=== PATIENT | male | born 1985 | race American Indian/Alaskan Native ===

== ENCOUNTER 2018-04-04 08:57 | Emergency (ER) | payer OTHER ==
[2018-04-04 09:18] VITALS: TEMP 97.5; O2SAT 98
[2018-04-04] MEDS ORDERED: Sodium Chloride 0.9% 1,000 ML IV ONE (09:42)
[2018-04-04] MEDS ORDERED: Sodium Chloride 0.9% 1,000 ML ONE (09:51)
[2018-04-04 10:05] LABS: BASO % 0.4 % (0.0-2.0); EOS # 0.1 K/uL (0.0-0.7); EOS % 1.1 % (0.0-4.0); HEMOGLOBIN 14.1 g/dL (12.0-18.0); LYMPH # 3.1 K/uL (1.0-4.3); LYMPH % 27.5 % (20.0-40.0); MEAN CORPUSCULAR HEMOGLOBIN 27.8 pg (27.0-31.0); MEAN CORPUSCULAR HGB CONC 32.7 g/dL (33.0-37.0); MEAN PLATELET VOLUME 7.9 fL (7.2-11.7); MONO % 8.8 % (0.0-10.0); NEUT # 6.9 K/uL (1.8-7.0); NEUT % 62.2 % (50.0-75.0); NRBC % 0.1 % (0.0-2.0); RBC 5.07 Mil/uL (4.40-5.90); RED CELL DISTRIBUTION WIDTH 14.2 % (11.5-14.5); WHITE BLOOD COUNT 11.1 K/uL (4.8-10.8)
[2018-04-04 10:10] LABS: ALB/GLOB RATIO 1.3 (1.0-2.1); ALBUMIN 4.8 g/dL (3.5-5.0); ALT/SGPT 47 U/L (21-72); AST/SGOT 46 U/L (17-59); BLOOD UREA NITROGEN 22 mg/dL (9-20); CALCIUM 9.4 mg/dl (8.6-10.4); GFR NON-AFRICAN AMERICAN > 60
[2018-04-04 11:34] VITALS: BP 126/80; PULSE 73; RESP 14
--- NOTE | 2018-04-04 11:40 | RAD ---
Date of service: 04/04/2018 PROCEDURE: CHEST RADIOGRAPH, 1 VIEW HISTORY: chest pain COMPARISON: None available. FINDINGS: LUNGS: Clear. PLEURA: No pneumothorax or pleural fluid seen. CARDIOVASCULAR: No aortic atherosclerotic calcification present. Normal. OSSEOUS STRUCTURES: No significant abnormalities. VISUALIZED UPPER ABDOMEN: Normal. OTHER FINDINGS: None. IMPRESSION: No active disease.
--- NOTE | 2018-04-04 13:03 | C.PDOC ---
History Of Present Illness 32 year old male presents to the ED for evaluation of dizziness that started last night. The patient reports feeling mildly dizzy after getting upset last night, reason unknown. Pt does not want to go into further detail. Denies fever, chills, cough, and any other associated symptoms. Chief Complaint (Nursing): Chest Pain History Per: Patient History/Exam Limitations: no limitations Onset/Duration Of Symptoms: Hrs Current Symptoms Are (Timing): Still Present Recent travel outside of the [place]: No Past Medical History Reviewed: Historical Data, Nursing Documentation, Vital Signs Vital Signs: Last Vital Signs Temp 97.5 F L 04/04/18 09:12 Pulse 73 04/04/18 11:25 Resp 14 04/04/18 11:25 BP 126/80 04/04/18 11:25 Pulse Ox 98 04/04/18 11:25 - Medical History PMH: HTN Family History: States: Unknown Family Hx - Social History Hx Alcohol Use: Yes Hx Substance Use: No - Immunization History Hx Tetanus Toxoid Vaccination: No Hx Influenza Vaccination: No Hx Pneumococcal Vaccination: No Review Of Systems Except As Marked, All Systems Reviewed And Found Negative. Constitutional: Negative for: Fever, Chills Respiratory: Negative for: Cough Neurological: Positive for: Dizziness Physical Exam - Physical Exam Appears: Non-toxic, No Acute Distress Skin: Warm, Dry Head: Atraumatic, Normacephalic Eye(s): bilateral: Normal Inspection Oral Mucosa: Moist Neck: Normal ROM, Supple Chest: Symmetrical, No Deformity Cardiovascular: Rhythm Regular, No Murmur Respiratory: Normal Breath Sounds, No Rales, No Rhonchi, No Wheezing Gastrointestinal/Abdominal: Normal Exam, Soft, No Tenderness Extremity: Bilateral: Atraumatic, Normal Color And Temperature, Normal ROM Neurological/Psych: Oriented x3, Normal Speech, Normal Cognition ED Course And Treatment - Laboratory Results Result Diagrams: 04/04/18 09:41 04/04/18 09:41 Lab Results: Troponin I < 0.0120 ng/mL (0.00-0.120) 04/04/18 09:41 Total Bilirubin 0.8 mg/dL (0.2-1.3) 04/04/18 09:41 AST 46 U/L (17-59) 04/04/18 09:41 ALT 47 U/L (21-72) 04/04/18 09:41 Alkaline Phosphatase 65 U/L (38-126) 04/04/18 09:41 Total Protein 8.3 g/dL (6.3-8.3) 04/04/18 09:41 Albumin 4.8 g/dL (3.5-5.0) 04/04/18 09:41 Globulin 3.6 gm/dL (2.2-3.9) 04/04/18 09:41 Albumin/Globulin Ratio 1.3 (1.0-2.1) 04/04/18 09:41 ECG: Interpreted By Me, Viewed By Me ECG Rhythm: Sinus Rhythm Rate From EC O2 Sat by Pulse Oximetry: 98 (RA) Pulse Ox Interpretation: Normal - Other Rad CXR X-Ray: Viewed By Me, Read By Radiologist Interpretation: FINDINGS: LUNGS: Clear. PLEURA: No pneumothorax or pleural fluid seen. CARDIOVASCULAR: No aortic atherosclerotic calcification present. Normal. OSSEOUS STRUCTURES: No significant abnormalities. VISUALIZED UPPER ABDOMEN: Normal. OTHER FINDINGS: None. IMPRESSION: No active disease. Medical Decision Making Medical Decision Making: Initial plan: -EKG -CXR -Blood sent -Antivert Progress/Update: Patient remained stable in the ED. Prescribed Meclizine. Advised to return to the ED if symptoms worsen. Disposition - Disposition Referrals: Frank Bond MD [Primary Care Provider] - Disposition: HOME/ ROUTINE Disposition Time: 10:35 Condition: GOOD Additional Instructions: EDI LOCKE, thank you for letting us take care of you today. The emergency medical care you received today was directed at your acute symptoms. If you were prescribed any medication, please fill it and take as directed. It may take several days for your symptoms to resolve. Return to the Emergency Department if your symptoms worsen, do not improve, or if you have any other problems. Please contact your doctor or call one of the physicians/clinics you have been referred to that are listed on the Patient Visit Information form that is included in your discharge packet. Bring any paperwork you were given at [facility] with you along with any medications you are taking to your follow up visit. Our treatment cannot replace ongoing medical care by a primary care provider outside of the emergency department. Thank you for allowing the [facility] team to be part of your care today. Follow up with your primary care doctor in 2-3 dys for re-evaluation and further management. Prescriptions: Meclizine [Meclizine*] 25 mg PO Q6 PRN #20 tab PRN Reason: Dizziness Instructions: Dizziness, Nonvertigo, (DC) Forms: [facility] (American) - Clinical Impression Clinical Impression: Dizziness - Scribe Statement The provider has reviewed the documentation as recorded by the Scribe (Josephine Saucedo) Provider Attestation: All medical record entries made by the Scribe were at my direction and personally dictated by me. I have reviewed the chart and agree that the record accurately reflects my personal performance of the history, physical exam, medical decision making, and the department course for this patient. I have also personally directed, reviewed, and agree with the discharge instructions and disposition.
--- NOTE | 2018-04-05 11:32 | CARD ---
APPROVED REPORT Date of service: 04/04/2018 EKG Measurement Heart [id number] <Conclusion> Normal sinus rhythm Minimal voltage criteria for LVH, may be normal variant Borderline ECG
== END 2018-04-04 11:25 | disposition home or self-care (01) ==
LOC: C.ER 08:57
DX: R42 Dizziness and giddiness (principal)
CPT/HCPCS: 71045; 80053; 80320; 84484; 85025; 93005; 96360; 99283; J7030

== ENCOUNTER 2018-04-14 02:51 | Emergency (ER) | payer OTHER ==
--- NOTE | 2018-04-14 03:26 | C.PDOC ---
History Of Present Illness 32 year old male presents to the ER with a complaint of feeling dizzy, lightheaded, and fatigued. Patient states he was at work when the symptoms began, he tried drinking water with no relief so he left work and came in. He reports a Hx of HTN. Denies weakness, numbness, back pain, nausea, back pain, abdominal pain, or chest pain. Patient notes he was seen here recently, had blood work done but left prior to getting results. Time Seen by Provider: 04/14/18 03:21 Chief Complaint (Nursing): Dizziness/Lightheaded History Per: Patient History/Exam Limitations: no limitations Onset/Duration Of Symptoms: Hrs Current Symptoms Are (Timing): Still Present Activity At Onset Of Symptoms: Other (Driving) Seizure Or Post-ictal Symptoms: None Fall Associated With With Symptoms: No Recent travel outside of the [place]: No - Symptoms Of CVA Associated Symptoms: denies: Impaired Speech, Seizure Activity, New Vision Deficit(Left), New Vision Deficit(Right), Decreased Ability To Walk, New Confusion Past Medical History Reviewed: Historical Data, Nursing Documentation, Vital Signs Vital Signs: Last Vital Signs Temp 97.9 F 04/14/18 03:09 Pulse 70 04/14/18 03:09 Resp 18 04/14/18 03:09 BP 124/88 04/14/18 03:09 Pulse Ox 95 04/14/18 03:09 - Medical History PMH: Anxiety, Depression, HTN Family History: States: Unknown Family Hx - Social History Hx Alcohol Use: Yes Hx Substance Use: No - Immunization History Hx Tetanus Toxoid Vaccination: Yes Hx Influenza Vaccination: No Hx Pneumococcal Vaccination: No Review Of Systems Constitutional: Positive for: Other (Fatigued). Negative for: Fever, Chills Eyes: Negative for: Vision Change Cardiovascular: Positive for: Light Headedness. Negative for: Chest Pain, Pa lpitations Respiratory: Negative for: Cough, Shortness of Breath Gastrointestinal: Negative for: Nausea, Vomiting, Abdominal Pain Musculoskeletal: Negative for: Back Pain Neurological: Positive for: Dizziness. Negative for: Weakness, Numbness Physical Exam - Physical Exam Appears: Non-toxic Skin: Normal Color, Warm, Dry, No Rash Head: Atraumatic, Normacephalic Eye(s): bilateral: Normal Inspection, PERRL, EOMI Oral Mucosa: Moist Neck: Normal, Supple Chest: Symmetrical, No Tenderness Cardiovascular: Rhythm Regular Respiratory: Normal Breath Sounds, No Rales, No Rhonchi, No Wheezing Gastrointestinal/Abdominal: Soft, No Tenderness Back: No CVA Tenderness, No Vertebral Tenderness, No Paraspinal Tenderness Extremity: Normal ROM (x4) Neurological/Psych: Oriented x3, Normal Speech, Normal Motor Gait: Steady ED Course And Treatment - Laboratory Results Result Diagrams: 04/14/18 05:29 04/14/18 05:29 O2 Sat by Pulse Oximetry: 95 (Room air) Pulse Ox Interpretation: Normal - Radiology CXR: Interpreted by Me, Viewed By Me CXR Interpretation: Yes: No Acute Disease. No: Infiltrates Medical Decision Making Medical Decision Making: EKG, blood work, and CXR ordered, results were negative. Meclizine administered. On reevaluation, patient is resting comfortably in no acute distress, vitals are stable, will discharge home with Rx and instructions to follow up with PMD or return if symptoms worsen. Disposition - Disposition Referrals: [facility] [Outside] Disposition: HOME/ ROUTINE Disposition Time: 05:11 Condition: GOOD Additional Instructions: Follow up with the medical doctor within 1-2 days, Return if worsened. Prescriptions: Metoclopramide [Reglan] 1 tab PO TID PRN #25 tab PRN Reason: Nausea/Vomiting Instructions: Vertigo (a Type of Dizziness) (DC) Forms: [facility] ([place]) - Clinical Impression Clinical Impression: Dizziness - PA / NETWORK DIRECTOR / Resident Statement MD/DO has reviewed & agrees with the documentation as recorded. - Scribe Statement The provider has reviewed the documentation as recorded by the Scribe Demar Hammond All medical record entries made by the Scribe were at my direction and personally dictated by me. I have reviewed the chart and agree that the record accurately reflects my personal performance of the history, physical exam, medical decision making, and the department course for this patient. I have also personally directed, reviewed, and agree with the discharge instructions and disposition.
[2018-04-14 05:32] LABS: BASO % 0.5 % (0.0-2.0); EOS # 0.3 K/uL (0.0-0.7); EOS % 3.1 % (0.0-4.0); HEMOGLOBIN 12.8 g/dL (12.0-18.0); LYMPH # 3.2 K/uL (1.0-4.3); LYMPH % 33.7 % (20.0-40.0); MEAN CELL VOLUME 85.7 fL (80.0-94.0); MEAN CORPUSCULAR HEMOGLOBIN 27.9 pg (27.0-31.0); MEAN CORPUSCULAR HGB CONC 32.6 g/dL (33.0-37.0); MEAN PLATELET VOLUME 8.4 fL (7.2-11.7); MONO # 0.7 K/uL (0.0-0.8); MONO % 7.6 % (0.0-10.0); NEUT # 5.2 K/uL (1.8-7.0); NEUT % 55.1 % (50.0-75.0); RBC 4.59 Mil/uL (4.40-5.90); RED CELL DISTRIBUTION WIDTH 14.6 % (11.5-14.5); WHITE BLOOD COUNT 9.5 K/uL (4.8-10.8)
[2018-04-14 06:15] LABS: BLOOD UREA NITROGEN 15 mg/dL (9-20); CALCIUM 8.1 mg/dl (8.6-10.4); GFR NON-AFRICAN AMERICAN > 60
[2018-04-14 06:16] LABS: ALB/GLOB RATIO 1.8 (1.0-2.1); ALBUMIN 4.3 g/dL (3.5-5.0); ALT/SGPT 38 U/L (21-72); AST/SGOT 44 U/L (17-59)
[2018-04-14 09:29] VITALS: BP 124/82; PULSE 84; RESP 20; TEMP 98.9
--- NOTE | 2018-04-14 10:09 | RAD ---
Date of service: 04/14/2018 HISTORY: lightheaded COMPARISON: None available. FINDINGS: LUNGS: No active pulmonary disease. PLEURA: No significant pleural effusion identified, no pneumothorax apparent. CARDIOVASCULAR: No aortic atherosclerotic calcification present. Normal cardiac size. No pulmonary vascular congestion. OSSEOUS STRUCTURES: No significant abnormalities. VISUALIZED UPPER ABDOMEN: Normal. OTHER FINDINGS: None. IMPRESSION: No active disease.
[2018-04-15 18:30] VITALS: O2SAT 95
--- NOTE | 2018-04-15 19:57 | CARD ---
APPROVED REPORT Date of service: 04/14/2018 EKG Measurement Heart [id number] <Conclusion> Normal sinus rhythm Normal ECG
== END 2018-04-14 06:51 | disposition home or self-care (01) ==
LOC: C.ER 02:51
DX: R42 Dizziness and giddiness (principal)

== ENCOUNTER 2018-04-25 05:40 | Emergency (ER) | payer OTHER ==
[2018-04-25 06:05] VITALS: O2SAT 100
--- NOTE | 2018-04-25 06:40 | C.PDOC ---
History Of Present Illness 32 year old male with low back pain for the past 3 days. 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 He has not taken any medication for it because he tries not to take anything. Patient also notes he got off work tonight around 3am, was walking home when he felt a cramping to his chest that lasted 45 minutes. He states he had to "calm down" until it went away then came to the ER, reports no pain at this time. Patient has Hx of HTN but is not on any medication for it. He saw a doctor last week who worked him but reports only gave him vitamins. Denies SOB, nausea, vomiting, or other complaints at this time. <Nathanael Best - Last Filed: 04/29/18 02:34> <Latosha Carl - Last Filed: 04/25/18 08:09> History Per: Patient History/Exam Limitations: no limitations Onset/Duration Of Symptoms: Days (3) Current Symptoms Are (Timing): Still Present Previous Symptoms: None Associated Symptoms: None Recent travel outside of the [place]: No <Nathanael Best - Last Filed: 04/29/18 02:34> Time Seen by Provider: 04/25/18 06:06 Chief Complaint (Nursing): Back Pain Past Medical History Vital Signs: Last Vital Signs Temp 97.7 F 04/25/18 05:56 Pulse 69 04/25/18 05:56 Resp 20 04/25/18 05:56 BP 115/78 04/25/18 05:56 Pulse Ox 100 04/25/18 06:50 <Latosha Carl - Last Filed: 04/25/18 08:09> Reviewed: Historical Data, Nursing Documentation, Vital Signs Vital Signs: Last Vital Signs Temp 97.7 F 04/25/18 05:56 Pulse 69 04/25/18 05:56 Resp 20 04/25/18 05:56 BP 115/78 04/25/18 05:56 Pulse Ox 100 04/25/18 05:56 - Medical History PMH: Anxiety, Depression, HTN Family History: States: Unknown Family Hx - Social History Hx Alcohol Use: Yes Hx Substance Use: No - Immunization History Hx Tetanus Toxoid Vaccination: No Hx Influenza Vaccination: No Hx Pneumococcal Vaccination: No <aNthanael Best - Last Filed: 04/29/18 02:34> Review Of Systems Constitutional: Negative for: Fever, Chills Eyes: Negative for: Pain, Redness ENT: Negative for: Mouth Swelling Cardiovascular: Positive for: Chest Pain. Negative for: Palpitations Respiratory: Negative for: Cough, Shortness of Breath Gastrointestinal: Negative for: Nausea, Vomiting, Diarrhea Genitourinary: Negative for: Dysuria, Incontinence, Hematuria Musculoskeletal: Positive for: Back Pain Skin: Negative for: Rash Neurological: Negative for: Weakness, Numbness, Dizziness <NasirNathanael - Last Filed: 04/29/18 02:34> Physical Exam - Physical Exam Appears: Well, Non-toxic, No Acute Distress Skin: Normal Color, Warm, No Rash Head: Atraumatic, Normacephalic Eye(s): bilateral: Normal Inspection, PERRL, EOMI Oral Mucosa: Moist Neck: Normal ROM, Supple Chest: Symmetrical, No Tenderness Cardiovascular: Rhythm Regular Respiratory: Normal Breath Sounds, No Accessory Muscle Use, Other (Normal inspiratory effort) Gastrointestinal/Abdominal: Soft, No Distention Back: No Vertebral Tenderness, Other (Lower back pain when standing and bending forward 70-80 degees) Extremity: Normal ROM (x4) Neurological/Psych: Oriented x3, Normal Speech, Normal Cranial Nerves (Grossly intact) <NasirNathanael - Last Filed: 04/29/18 02:34> ED Course And Treatment - Laboratory Results Result Diagrams: 04/25/18 06:43 04/25/18 07:27 Lab Results: Troponin I < 0.0120 ng/mL (0.00-0.120) 04/25/18 07:27 Total Bilirubin 1.1 mg/dL (0.2-1.3) 04/25/18 07:27 AST 65 U/L (17-59) H D 04/25/18 07:27 ALT 36 U/L (21-72) 04/25/18 07:27 Alkaline Phosphatase 52 U/L (38-126) 04/25/18 07:27 Total Protein 8.1 g/dL (6.3-8.3) 04/25/18 07:27 Albumin 4.5 g/dL (3.5-5.0) 04/25/18 07:27 Globulin 3.6 gm/dL (2.2-3.9) 04/25/18 07:27 Albumin/Globulin Ratio 1.3 (1.0-2.1) 04/25/18 07:27 <Latosha Carl - Last Filed: 04/25/18 08:09> - Laboratory Results Result Diagrams: 04/25/18 06:43 04/25/18 07:27 O2 Sat by Pulse Oximetry: 100 (Room air) Pulse Ox Interpretation: Normal <NasirNathanael - Last Filed: 04/29/18 02:34> Medical Decision Making Medical Decision Making: Because patient has Hx of HTN, though this pain does not sound like cardiac pain, he will get labs and EKG to rule out acute abnormalities, but he has a low heart score. <NasirNathanael - Last Filed: 04/29/18 02:34> Disposition <Latosha Carl - Last Filed: 04/25/18 08:09> - Disposition Disposition Time: 08:30 <NasirNathanael - Last Filed: 04/29/18 02:34> - Disposition Referrals: Nathanael Moraes MD [Staff Provider] - Disposition: HOME/ ROUTINE Condition: STABLE Additional Instructions: Follow up with the medical doctor within 1-2 days. Return if worsened. Instructions: Chest Pain Forms: [facility] ([place]), Work Excuse - Clinical Impression Clinical Impression: Atypical chest pain - PA / COMMERCIAL CENTER MANAGER / Resident Statement MD/DO has reviewed & agrees with the documentation as recorded. - Scribe Statement The provider has reviewed the documentation as recorded by the Scribe Demar Hammond All medical record entries made by the Scribe were at my direction and personally dictated by me. I have reviewed the chart and agree that the record accurately reflects my personal performance of the history, physical exam, medical decision making, and the department course for this patient. I have also personally directed, reviewed, and agree with the discharge instructions and disposition. <NasirNathanael - Last Filed: 04/29/18 02:34> Addendum Addendum: 04/25/18 08:09 Sign out received at 0700, pending labs and re-eval. Labs and vitals are WNLs. On re-exam, the patient reports improvement of symptoms. Lungs are CTA, heart is RRR, abdomen is soft, non-tender and the patient is tolerating PO well. The patient is ambulatory in the ED with steady gait. Patient was instructed to follow up with the medical doctor/tube mill operator within 1-2 days. Return if worsen ed. <Latosha Carl - Last Filed: 04/25/18 08:09>
[2018-04-25 06:47] LABS: BASO % 0.3 % (0.0-2.0); EOS # 0.2 K/uL (0.0-0.7); EOS % 1.9 % (0.0-4.0); HEMOGLOBIN 14.1 g/dL (12.0-18.0); LYMPH % 24.3 % (20.0-40.0); MEAN CELL VOLUME 86.1 fL (80.0-94.0); MEAN CORPUSCULAR HEMOGLOBIN 28.1 pg (27.0-31.0); MEAN CORPUSCULAR HGB CONC 32.7 g/dL (33.0-37.0); MEAN PLATELET VOLUME 7.9 fL (7.2-11.7); MONO # 0.9 K/uL (0.0-0.8); MONO % 6.9 % (0.0-10.0); NEUT # 8.3 K/uL (1.8-7.0); NEUT % 66.6 % (50.0-75.0); NRBC % 0.2 % (0.0-2.0); RBC 5.02 Mil/uL (4.40-5.90); WHITE BLOOD COUNT 12.5 K/uL (4.8-10.8)
[2018-04-25 07:53] LABS: ALB/GLOB RATIO 1.3 (1.0-2.1); ALBUMIN 4.5 g/dL (3.5-5.0); ALT/SGPT 36 U/L (21-72); AST/SGOT 65 U/L (17-59); BLOOD UREA NITROGEN 15 mg/dL (9-20); CALCIUM 9.1 mg/dl (8.6-10.4); GFR NON-AFRICAN AMERICAN > 60
[2018-04-25 08:31] VITALS: BP 118/82; PULSE 82; RESP 18; TEMP 98.1
== END 2018-04-25 08:32 | disposition home or self-care (01) ==
LOC: C.ER 05:40
DX: R07.89 Other chest pain (principal)